=== PATIENT | female | born 1980 | race Caucasian/White ===

== ENCOUNTER 2016-12-24 08:17 | Emergency (ER) | payer MEDICARE, MEDICAID ==
[~2016-12-24] VITALS: Ht 160 cm; Wt 59.1 kg
[~2016-12-24 08:17] MED LIST: DIAZ5TAB3 PO; LACT1CAP26 PO; ONDA4TAB9 PO; ONDA8TAB10 PO; OXYC1TAB24 PO; OXYC5SOL11 PO; PANT40TA2 PO; PROM25TA14 PO; Pancrelipase PO
[2016-12-24 08:22] VITALS: BP 130/78; PULSE 96; RESP 14; O2SAT 99
--- NOTE | 2016-12-24 08:24 | ED.REPORT ---
HPI-Abd Pain F Under 40 Date of Service Dec 24, 2016 ED Provider: Adria Moralez Patient is a 36 year old female with a hx of pancreatitis and recurrent tooth infections who presents to the ED complaining of a flare up of her pancreatitis onset 4-5 days ago. Associated symptoms include diarrhea, nausea, vomiting, subjective fever, chills, and abdominal pain. She denies hematemesis, hematochezia, or any other symptoms. She does not drink, have gall stones, or have lung disease. She is not diabetic. She takes hydrocodone as needed for pain. Nursing Notes Stated Complaint: POSS PANCREATITIS Chief Complaint: Female Abdominal Pain Nursing Notes Reviewed: Yes Allergies: Coded Allergies: topiramate (Verified Allergy, Severe, 05/23/16) Possible triggers acute pancreatitis metoclopramide HCl (Verified Adverse Reaction, Severe, Tremors, 05/23/16) Pt has hx of reaction to Reglan with tremors/shaking of extremities. prochlorperazine (Verified Adverse Reaction, Severe, 05/23/16) Pt reports increased hr and shakiness propranolol (Verified Adverse Reaction, Severe, 05/23/16) Possibly triggers acute pancreatitis scopolamine (Verified Adverse Reaction, Severe, 05/23/16) Pt reports increased hr and shakiness Scheduled Lactobacillus Acidophilus (Acidophilus) 1 Each Capsule 1 EACH PO DAILY Scheduled PRN Diazepam (Diazepam) 5 Mg Tablet 7.5 MG PO BID PRN PRN For Anxiety Ondansetron ODT (Zofran ODT) 4 Mg Tablet 4 MG PO Q4H PRN PRN For Nausea Ondansetron ODT (Ondansetron ODT) 8 Mg Tab.rapdis 8 MG PO Q6H PRN PRN For Nausea /Vomiting Oxycodone (Roxicodone) 5 Mg Tablet 5 MG PO q8hrs PRN PRN For Pain Oxycodone (Roxicodone) 5 Mg Tablet 5 MG PO TID PRN PRN For Pain Promethazine (Promethazine) 50 Mg Tablet 50 MG PO QID PRN PRN For Nausea General Time Seen by MD: 08:24 Chief Complaint Diarrhea mild Hx Obtained From: Patient Arrived By: Walk-in Sudden in Onset?: Yes Onset Occurred: 5 days ago Symptom Duration: Since onset Similar Sx Previous: Yes Past Medical History Past Medical History pancreatitis tooth infections kidney infections bladder infections ADHD Umbilical hernia anxiety Past Surgical History pancreatic surgery partial hysterectomy Reports: Appendectomy, Cholecystectomy Family History Sister has cystic fibrosis Smoking History Never Smoker Social History Alcohol Use: Denies alcohol use Drug Use: Denies drug use Ambulatory Status Independent Review of Systems Constitutional: Reports: Chills, Fever GI: Reports: Abdominal pain, Diarrhea, Nausea, Vomiting, Denies: Hematemesis, Hematochezia Complete sys rev & neg: except as marked. Physical Exam Initial Vital Signs Vital Signs (First) Date Time Temp Pulse Resp B/P Pulse Ox O2 Delivery O2 Flow Rate FiO2 12/24/16 08:22 37.8 96 14 130/78 99 Room Air Initial VS: Reviewed Head / Eyes: Atraumatic, Normocephalic Neck: Full range of motion Skin: Warm, Dry Neurologic: Alert, Oriented, Nonfocal Psychiatric: Mood/affect normal, Behavior normal, Normal thought content General/Constitutional: Awake, Alert Respiratory / Chest: Breath sounds NL, Breath sounds = bilat, No respiratory distress Cardiovascular: Heart rate NL, Regular rhythm, Heart sounds NL Abdomen: No guarding, BS normoactive Tenderness/Guarding/Rebound: Positive: Tender epigastric (mid) Back: Atraumatic Lower Extremity / Pelvis / MS: No edema Interpretation & Diagnostics Lab Results Interpretation Result Diagram: 12/24/16 0843 12/24/16 0843 Test 12/24/16 08:43 12/24/16 09:42 12/24/16 10:32 White Blood Count 10.0th/mm3 (3.8-10.1) Red Blood Count 4.86mil/mm3 (3.90-5.20) Hemoglobin 13.6g/dL (12.0-15.6) Hematocrit 40.1% (35.0-46.0) Mean Corpuscular Volume 82.5fL (81-100) Mean Corpuscular Hemoglobin 28.0pg (27.0-35.0) Mean Corpuscular Hemoglobin Concent 33.9% (32.0-37.0) Red Cell Distribution Width 13.0% (12.3-15.4) Platelet Count 149bil/L (150-400) Neutrophils (%) (Auto) 67.3% (40-74) Lymphocytes (%) (Auto) 25.4% (14-46) Monocytes (%) (Auto) 4.2% (4-12) Eosinophils (%) (Auto) 2.5% (0-5) Basophils (%) (Auto) 0.2% (0-3) Sodium Level 137mEq/L (134-144) Potassium Level 4.3mEq/L (3.5-5.2) Chloride Level 100mEq/L (97-108) Carbon Dioxide Level 18mmol/L (18-29) Blood Urea Nitrogen 18mg/dL (6-20) Creatinine 0.53mg/dL (0.57-1.00) Estimat Glomerular Filtration Rate 189mL/min (>59) Glucose Level 92mg/dL (60-99) Calcium Level 9.7mg/dL (8.5-10.1) Magnesium Level 2.2mg/dL (1.6-2.6) Total Bilirubin 0.5mg/dL (0.0-1.2) Aspartate Amino Transf (AST/SGOT) 28U/L (0-50) Alanine Aminotransferase (ALT/SGPT) 11U/L (0-32) Alkaline Phosphatase 66U/L (25-150) Total Protein 8.1g/dL (6.4-8.4) Albumin 4.6g/dL (3.4-5.0) Lipase 64U/L (13-60) Hold Urine Received (Received) Hold Martin Top Tube Received (Received) Re-Eval/Medical Decision Med Decision/Clinical Course [place] GIS PROFESSOR: 12/11/2016 12/10/2016 OXYCODONE HCL 5 MG TABLET [id number] 84 28 [id number] HUNTER Payne MD [facility].[address] [place] [address] ZEE FRAUSTO [address] [place] [address] 04 22.5 11/25/2016 11/25/2016 DIAZEPAM 10 MG TABLET [id number] 45 30 [id number] HUNTER Payne [place] ZEE FRAUSTO [address] [place] [address] 03 0 11/13/2016 11/13/2016 OXYCODONE HCL 10 MG TABLET [id number] 84 28 [id number] HUNTER Payne MD [facility] [place] ZEE FRAUSTO [address] [place] [address] 03 45 10/20/2016 10/20/2016 DIAZEPAM 10 MG TABLET [id number] 45 30 [id number] HUNTER RYAN [place] ZEE FRAUSTO [address] [place] [address] 03 0 10/15/2016 10/09/2016 OXYCODONE HCL 10 MG TABLET [id number] 112 28 [id number] [facility]TER [facility] [place] ZEE FRAUSTO [address] [place] [address] 04 60 I discussed the case with Dr. Avni More who asked me to prescribe 3 times a day 5 mg oxycodone 2 week supply and that he would see the patient in the clinic. I will also prescribe promethazine. Re-Evaluation/Progress #1: Time of Eval: 09:38 )( Re-Eval Abdomen: Soft Re-Evaluation/Progress Note: Rechecked patient. She is not feeling better. She has continued to have diarrhea but has not vomited. Re-Evaluation/Progress #2: Time of Eval: 12:40 )( Re-Eval Abdomen: Soft Re-Evaluation/Progress Note: Discussed plan for discharge. Patient understands and agrees with plan. All questions addressed at this time. Consultation : Referral / Consult Name: Avni More MD Call Returned at: 12:30 Logistics And Planning Manager: Will see in office, Agrees with eval, Agrees with plan Note: Discussed pt's case with her PCP. Give 2 week supply of oxycodone and will follow up in office. Counseled Regarding: Diagnosis, Lab results, Need for follow-up, When/why to return to ED Discharge & Departure Primary Impression: Abdominal pain Abdominal location: generalized Qualified Code: R10.84 - Generalized abdominal pain Disposition: Home Discharge Condition All VS Reviewed: Yes Condition: Improved Patient Instructions: Acute Abdominal Pain (ED) Additional Instructions: No dangerous cause for your abdominal pain is discovered today. No evidence of significant pancreatic inflammation today. I believe that your tapering dose of oxycodone may at least be partially responsible for the abdominal pain and nausea you are experiencing. will see you in the clinic within the next 2 weeks. He asked me to prescribe you 2 weeks supply of oxycodone 5 mg tablets; these tablets should be taken one tablet every 8 hours and no more. I have also prescribed promethazine which I hope will be helpful for your nausea. Referrals: Avni More MD (PCP) Ailyn Attestation Portions of this note were transcribed by Gilbert Benton. I, Dr. Moralez personally performed the history, physical exam and medical decision-making; I reviewed and confirmed the accuracy of the information in the transcribed note. Signed by: Ailyn Richardson, 12/24/16 at 1240. copies to: Avni More MD, Kirk H MD Dec 24, 2016 08:24 GILBERT BENTON Dec 24, 2016 08:31
[2016-12-24] MEDS ORDERED: 0.9% Sodium Chloride 1,000 ML IV ONE (08:38)
[2016-12-24] MEDS ORDERED: Ondansetron 2 mg/mL 2 mL Inj IVPUSH PRN (08:40)
[2016-12-24] MEDS ORDERED: Acetaminophen IV 1,000 MG in IV Premix 1 EACH IV ONE (08:40)
[2016-12-24] MEDS ORDERED: Ondansetron 8 mg ODT Tablet PO ONE (08:50)
[2016-12-24 08:51] LABS: BASOPHILS % (AUTO) 0.2 % (0-3); EOSINOPHILS % (AUTO) 2.5 % (0-5); MONOCYTES % (AUTO) 4.2 % (4-12); Mean Corpuscular Volume 82.5 fL (81-100); NEUTROPHILS % (AUTO) 67.3 % (40-74); Platelet Count 149 bil/L (150-400)
[2016-12-24] MEDS ORDERED: OXYC-474 PO ×2 (09:05→12:38)
[2016-12-24] MEDS ORDERED: DIAZ5TAB3 PO (09:05)
[2016-12-24 09:21] LABS: Magnesium 2.2 mg/dL (1.6-2.6)
[2016-12-24] MEDS ORDERED: Promethazine Inj 25 MG in Dextrose 5%-Pha MIX 50 ML IV ONE (09:40)
[2016-12-24] MEDS ORDERED: PROM50TA3 PO (12:38)
[2016-12-24 13:04] VITALS: BP 122/72; PULSE 97; RESP 14; O2SAT 99
== END 2016-12-24 13:05 | disposition home or self-care (01) ==
LOC: SED 08:17
DX: R10.84 Generalized abdominal pain (principal); R11.2 Nausea with vomiting, unspecified; R50.9 Fever, unspecified; F90.9 Attention-deficit hyperactivity disorder, unspecified type; F41.9 Anxiety disorder, unspecified; Z87.19 Personal history of other diseases of the digestive system; Z90.49 Acquired absence of other specified parts of digestive tract; Z98.890 Other specified postprocedural states; Z88.8 Allergy status to other drugs, medicaments and biological substances
CPT/HCPCS: 36415; 80053; 83690; 83735; 85025; 96361; 96374; 99284; J2550; J7030